=== PATIENT | female | born 1960 | race Caucasian/White ===

== ENCOUNTER 2024-12-13 22:22 | Emergency (ER) | payer MEDICAID, OTHER ==
[~2024-12-13] VITALS: Ht 157.5 cm; Wt 77.1 kg
[2024-12-13] MEDS ORDERED: VALA100026 PO (22:51)
[2024-12-13] MEDS ORDERED: PRED50TA PO (22:51)
[2024-12-13 23:00] VITALS: BP 150/76; TEMP 98.5; O2SAT 97
== END 2024-12-13 23:00 | disposition home or self-care (01) ==
LOC: ER 22:25
DX: G51.0 Bell's palsy (principal); F17.200 Nicotine dependence, unspecified, uncomplicated; Z79.52 Long term (current) use of systemic steroids; Z79.624 Long term (current) use of inhibitors of nucleotide synthesis; Z60.2 Problems related to living alone

== ENCOUNTER 2025-05-26 21:24 | Emergency (ER) | payer MEDICARE, MEDICAID ==
[~2025-05-26] VITALS: Ht 152.4 cm; Wt 67.6 kg
[~2025-05-26 21:24] MED LIST: PRED50TA PO; VALA100026 PO
[2025-05-26] MEDS ORDERED: CARI350T PO (23:39)
[2025-05-26] MEDS ORDERED: IBUP-1957 PO (23:39)
[2025-05-26 23:45] VITALS: BP 138/78; TEMP 98.3; O2SAT 97
== END 2025-05-26 23:46 | disposition home or self-care (01) ==
LOC: ER 21:28
DX: M54.50 Low back pain, unspecified (principal); F17.200 Nicotine dependence, unspecified, uncomplicated; Z60.2 Problems related to living alone

== ENCOUNTER 2025-05-31 02:03 | Emergency (ER) | payer MEDICARE, MEDICAID ==
[~2025-05-31] VITALS: Ht 172.7 cm; Wt 63.5 kg
[~2025-05-31 02:03] MED LIST changes: +CARI350T PO; +IBUP-1957 PO
[2025-05-31] MEDS ORDERED: KETOROLAC TROMETHAMINE INJ 30 MG/ML VIAL ONE (02:32)
[2025-05-31] MEDS ORDERED: CYCLOBENZAPRINE 10 MG TABLET ONE (02:32)
[2025-05-31] MEDS: KETOROLAC TROMETHAMINE INJ 30 MG/ML VIAL IM ONE (02:38)
[2025-05-31] MEDS: CYCLOBENZAPRINE 10 MG TABLET PO ONE (02:38)
[2025-05-31] MEDS ORDERED: CYCL5TAB PO (02:48)
[2025-05-31] MEDS ORDERED: KETO10TA2 PO (02:48)
[2025-05-31 03:38] VITALS: BP 128/89; TEMP 98.2; O2SAT 98
== END 2025-05-31 03:41 | disposition home or self-care (01) ==
LOC: ER 02:05
DX: F17.200 Nicotine dependence, unspecified, uncomplicated (principal); J44.9 Chronic obstructive pulmonary disease, unspecified; M19.90 Unspecified osteoarthritis, unspecified site; M79.7 Fibromyalgia; Z60.2 Problems related to living alone; Z79.1 Long term (current) use of non-steroidal anti-inflammatories (NSAID); Z79.52 Long term (current) use of systemic steroids; Z79.624 Long term (current) use of inhibitors of nucleotide synthesis
CPT/HCPCS: 99283; 96372; J1885